=== PATIENT | female | born 1945 | race Caucasian/White ===

== ENCOUNTER → 2021-06-05 09:27 | Outpatient (CLI) | payer OTHER, SELFPAY ==
[2021-06-05 11:31] LABS: COVID19 -Nasal RAPID Negative (Negative)
== END ==
PROVIDERS: Visit Provider Physician Assistant
DX: Z01.812 Encounter for preprocedural laboratory examination (principal); Z20.822 Contact with and (suspected) exposure to COVID-19
CPT/HCPCS: 87635

== ENCOUNTER → 2021-06-07 07:25 | Outpatient (CLI) | payer OTHER, SELFPAY ==
--- NOTE | 2021-06-07 | DI.NM.S_ITS ---
PROCEDURE: NM VALENTIN PERF SPECT REST & STR Rest and exercise myocardial perfusion SPECT with gated imaging and ejection fraction RADIOPHARMACEUTICAL: 10.4 mCi Tc-99m sestamibi IV at rest and 26.9 mCi Tc-99m sestamibi IV at peak exercise. A one day-protocol was performed. INDICATIONS: Atherosclerotic heart disease TECHNIQUE: Radiopharmaceutical was injected at peak stress test, and also at rest. SPECT images were obtained. SPECT myocardial perfusion images were displayed in short axis, horizontal long axis, and vertical long axis views. Gated images were reviewed using [employer]previously [employer]QUANT software. COMPARISON: None. CARDIAC STRESS: A standard Diaz treadmill exercise tolerance test was performed by the patient under the supervision of an attending staff. The patient exercised for 6 minutes and 16 seconds; functional aerobic impairment (PIERCE) is -15%. Hemodynamic data: There is normal blood pressure and heart rate response to exercise stress. Patient achieved 104% of maximum predicted heart rate at peak exercise. Symptoms: Patient had moderate chest pain with exercise that resolved during recovery. EKG: Resting ECG shows minimal ST depressions in the anterolateral leads that worsen to mild with exercise. The mild inferior lead ST depressions at rest worsen slightly with exercise. Frequent PACs and very brief runs of atrial tachycardia present. FINDINGS: Raw data: There is good myocardial labeling by radiotracer. No significant motion artifacts. Bfnq-yo-gnjnp ratio is 0.26 (normal is less than 0.38 for sestamibi tracer, and less than 0.50 for thallium tracer). Left ventricle function: Gated images demonstrate normal left ventricle wall thickening. No segmental wall motion abnormality. No transient ischemic dilation; TID is 1.11 (normal less than 1.3). The left ventricle resting end-diastolic volume is 41 mL. Left ventricle stress ejection fraction is 81%; normal values are above 45%. Myocardial perfusion: There is a fixed distal anterior wall defect that resolves with prone imaging, suggesting breast attenuation artifact. No ischemia or infarction. IMPRESSION: Low risk, abnormal treadmill stress test. 1) There is a fixed distal anterior wall defect that resolves with prone imaging, suggesting breast attenuation artifact. No ischemia or infarction. 2) Normal left ventricular size, wall motion, and systolic function (EF post stress 81%). 3) Slight worsen of ST depressions in the anterolateral leads and inferior leads with exercise. 4) Frequent PACs and very brief runs of atrial tachycardia present with exerXinronge and during recovery. 5) Angina with exercise that resolved quickly in early recovery. 6) Good exercise tolerance (7.0 METs, Pierce -15%). Target heart rate achieved. Appropriate BP response to exercise. 7) No prior nuclear stress test available for comparison. Dictated by: Sebastien Man MD on 06/07/2021 at 16:48 Approved by: Sebastien Man MD on 06/07/2021 at 16:54
--- OUTSIDE RECORDS SUMMARY | 2021-06-12 08:54 | XMS_ITS | Referral Summary ---
:1945 Author Organization [facility] Address [address] [place] [address] Care Team Providers Name Role Phone MD Sana Primary Care Provider Reason for Referral Evaluate and Treat (Routine) Status Reason Specialty Diagnoses / Referred By Referred To Procedures Contact Contact Closed Specialty Cardiology Diagnoses History of heart artery stent [facility] Services Kamilah Virgen MD [address] [place] [address] [address] [id number] [place], [place] Phone: [phone] Electronically signed by Sebastien Man MD at Encounter Details Date Type Department Care Team Description 06/08/[address] [facility] Sebastien Man MD Cardiology [address] [place] [address], [address] [place] [address] [place] [address] Allergies Active Allergy Reactions Severity Noted Date Comments Atorvastatin Low 01/06/2020 Other reaction( s): Adverse Drug Reaction transaminitis documented as of this encounter (statuses as of 06/09/2021) Medications Medication Sig Dispensed Refills Start Date End Date Status levothyroxine Take 100 mcg by 0 Active (SYNTHROID) 100 mcg mouth daily tablet latanoprost (XALATAN) Administer 1 drop 0 Active 0.005 % ophthalmic into both eyes solution nightly aspirin 81 mg EC Take 1 tablet (81 30 tablet 11 04/29/202104/02 Active tablet mg total) by mouth daily nitroglycerin Place 1 tablet 90 tablet 0 04/29/2021 04/29/2022 Active (NITROSTAT) 0.4 mg SL (0.4 mg total) tablet under the tongue every 5 (five) minutes as needed for chest pain (If chest pain does not resolve after 3 pills call 911) amLODIPine (NORVASC) Take 1 tablet (5 90 tablet 3 05/09/2021 0 05/09/2022 Active 5 mg tablet mg total) by mouth daily isosorbide Take 1 tablet (60 90 tablet 3 05/09/2021 05/09/2022 Active mononitrate (IMDUR) mg total) by 60 mg 24 hr tablet mouth daily clopidogreL (PLAVIX) Take 1 tablet (75 90 tablet 3 05/09/2021 05/09/2022 Active 75 mg tablet mg total) by mouth daily rosuvastatin Take 1 tablet (20 90 tablet 0 05/09/2021 08/07/20 21 Active (CRESTOR) 20 mg mg total) by tablet mouth nightly documented as of this encounter (statuses as of 06/09/2021) Active Problems Problem Noted Date Non-ST elevation (NSTEMI) myocardial infarction 2020 Coronary artery disease involving white mountain coronary barbara ry 04/29/2021 Hypothyroidism 04/29/2021 History of breast cancer 04/29/2021 documented as of this encounter (statuses as of 06/09/2021) Social History Tobacco Use Types Packs/Day Years Used Date Former Smoker Cigarettes Quit: 04/27/19 78 Smokeless Tobacco: Never Used Alcohol Use Standard Drinks/Week Comments Never 0 (1 standard drink = 0.6 oz pure alcoho l) Alcohol Habits Answer Date Recorded How often do you have a drink containing alcohol? Never 04/27/2021 How many drinks containing alcohol do you have on a typical Not asked day when you are drinking? How often do you have six or more drinks on one occasion? No t asked Sex Assigned at Date Recorded Not on file Job Start Date Occupation Industry Not on file Not on file Not on file documented as of this encounter Miscellaneous Notes Telephone Encounter - Leah Ventura MA - 06/09/2021 5:04 PM PDT It doesn't look like they need anything else. Thanks! elephone Encounter - Ofelia Parada - 06/09/2021 3:23 PM PDT Auth recvd and faxed along w/order to Cardiac Rehab. D, can you sent whatever else they need? Thank you elephone Encounter - Sebastien Man MD - 06/08/2021 1:08 PM PDT Ofelia: please see my cardiac rehab referral for . FYI: I called the patient and spoke with her over the phone about her stress test results. While thenuclear perfusion images were normal, she did have chest discomfort with exertion and mild ST changes. She had held her imdur prior to the nuclear stress test (as asked by us). She states that she has lots on her plate right now, with giant cell arteritis diagnosis, BRBPR for which she is working with PCP, and ill sister. We agreed to continue with conservative approach for her CAD and have her take imdur daily and to call us if she has any exertional chest discomfort. I will refer her to cardiacrehab at . documented in this encounter Plan of Treatment Upcoming Encounters Date Type Specialty Care Team Description 08/10/2021 Telemedicine Cardiology Sebastien Man MD [address] [address] [place] [address] [phone] Scheduled Referrals Name Type Priority Associated Order Schedule Diagnoses XTRNL Referral to Outpatient Referral Routine History of heart Ordered: Cardiology artery stent 06/08/2021 documented as of this encounter Implants Implanted Type Area Safety Equipment Tester Device Identifier Shelf Exp iration Model / Date Serial / L ot Stent Resol Addy Rx 3.0*30mm - [id number] Medtronic [id number] / Implanted: Qty: 1 on 04/28/2021 at [facility] / documented as of this encounter Visit Diagnoses Diagnosis ASHD (arteriosclerotic heart disease) - Primary Coronary atherosclerosis of unspecified type of vessel, white [place] or graft History of heart artery stent documented in this encounter Insurance Payer Benefit Plan / Subscriber ID Effective Dates Phone Addre ss Type Group [facility] [id number] 2016-[facility] HEALTH PLAN OF [facility] documented as of this encounter Advance Directives Documents on File Type Date Recorded 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
== END ==
PROVIDERS: Referring Provider Internal Medicine Cardiovascular Disease; Visit Provider Internal Medicine Cardiovascular Disease
DX: I25.10 Atherosclerotic heart disease of native coronary artery without angina pectoris (principal)
CPT/HCPCS: 78452; 93017; A9502

== ENCOUNTER 2021-08-13 11:37 | Emergency (ER) | payer OTHER, SELFPAY ==
[2021-08-13] VITALS (10 sets, daily range): BP systolic 117–168; BP diastolic 62–83; PULSE 58–78; RESP 17–24; O2SAT 96–100
--- NOTE | 2021-08-13 11:48 | DI.RAD.S_ITS ---
PROCEDURE: XR CHEST 1V INDICATIONS: chest pain TECHNIQUE: One view of the chest was acquired. COMPARISON: None. FINDINGS: Surgical changes and devices: Right axillary clips. Right heart border coronary stent. Lungs and pleura: Lungs appear clear. Suspect emphysematous change. No pleural effusions or pneumothorax. Mediastinum: Mediastinal contours appear normal. Heart size is normal. Bones and chest wall: Chondroid matrix within the right proximal humerus. No cortical disruption seen. Overlying soft tissues appear unremarkable. IMPRESSION: No acute cardiopulmonary abnormality. Suspect benign enchondroma within the right proximal humerus. Dictated by: Julio Cesar De Leon M.D. on 08/13/2021 at 12:08 Approved by: Julio Cesar De Leon M.D. on 08/13/2021 at 12:10
[2021-08-13 12:03] LABS: Add Manual Diff / Slide Review NO; Basophils Absolute Auto 0 /uL (0-100); Basophils Percent Auto 0.6 % (0-2); Eosinophils Absolute Auto 100 /uL (0-450); Eosinophils Percent Auto 1.8 % (2-4); Hematocrit 37.6 % (36-46); Hemoglobin 12.4 g/dL (12.0-16.0); Lymphocytes Absolute Auto 1800 /uL (1100-4500); Mean Corpuscular Hemoglobin 30.3 PG (26-34); Mean Corpuscular Volume 91.8 fL (80-100); Monocytes Absolute Auto 500 /uL (0-900); Monocytes Percent Auto 6.8 % (3-14); Neutrophils Absolute Auto 4800 /uL (1500-7000); Neutrophils Percent Auto 65.8 % (50-75); Platelet Count 179 X10^3/uL (150-400); Red Cell Distribution Width 14.6 % (11.6-14.8); White Blood Cell Count 7.4 X10^3/uL (4.5-11.0)
[2021-08-13 12:12] LABS: Alanine Aminotransferase 15 IU/L (<35); Albumin 4.8 g/dL (3.5-5.0); Albumin Globulin Ratio 1.2 (1.0-2.8); Alkaline Phosphatase 91 U/L (38-126); Aspartate Aminotransferase 35 IU/L (14-36); BUN Creatinine Ratio 25.4 (6-22); Bilirubin Total 1.2 mg/dL (0.2-1.3); Blood Urea Nitrogen 17 mg/dL (7-17); Calcium 9.4 mg/dL (8.4-10.2); Carbon Dioxide 28 mmol/L (22-32); Chloride 105 mmol/L (98-107); Creatine Kinase 42 U/L (30-135); Estimated Glomerular Filt Rate > 60.0 mL/min (>60); Globulin 3.9 g/dL (1.7-4.1); Glucose 106 mg/dL (80-110); HEMOLYSIS < 15 (0-50); Lipase 105 U/L (23-300); Magnesium 1.9 mg/dL (1.6-2.3); Potassium 4.2 mmol/L (3.4-5.1); Sodium 141 mmol/L (137-145); Total Protein 8.7 g/dL (6.3-8.2)
[2021-08-13 12:24] LABS: NT-proBNP (BNP-Adult 18+) 945 pg/mL (<125); Troponin I < 0.012 ng/mL (0.01-0.034)
--- NOTE | 2021-08-13 12:39 | ED_ITS ---
HPI - Chest Pain General Chief Complaint: Chest Pain Stated Complaint: Chest pain-sent by Time Seen by Provider: 08/13/21 11:49 Source: patient Mode of arrival: Ambulatory Limitations: no limitations History of Present Illness HPI narrative: Patient is a 75-year-old female. Has a history of breast cancer. Also has a history of a heart attack earlier this year with stent placement. Here for evaluation of of an episode last evening when she had about 1 hour episode of palpitations, shortness of breath and some occasional sharp chest discomfort. She states that was a fairly sudden onset. Lasted approximately 1 hour and then resolved. She was able to sleep all evening without any further symptoms. This morning she had another episode of the sharp chest discomfort. She did not have the palpitations no other shortness of breath this morning. She is currently asymptomatic. Has never had anything like this in the past. A couple days ago she was started on metoprolol by her primary doctor. Related Data Allergies Allergy/AdvReac Type Severity Reaction Status Date / Time pravastatin Allergy Unknown Verified 08/13/21 11:47 Review of Systems Constitutional Constitutional: Reports system reviewed and no additional complaints, except as documented Cardiovascular Cardiovascular: Reports as per HPI and Reports system reviewed and no additional complaints, except as documented Respiratory Respiratory: Reports as per HPI and Reports system reviewed and no additional complaints, except as documented Gastrointestinal Gastrointestinal: Reports system reviewed and no additional complaints, except as documented Musculoskeletal Musculoskeletal: Reports system reviewed and no additional complaints, except as documented Integumentary/Breasts Skin/Breast: Reports system reviewed and no additional complaints, except as documented Neurologic Neurologic: Reports system reviewed and no additional complaints, except as documented Hematologic/Lymphatic On Anticoagulants: No Allergic/Immunologic Allergic/Immunologic: Reports system reviewed and no additional complaints, except as documented Patient History Medical History Breast cancer Coronary artery disease Hypothyroidism Social History Smoking Status: Former smoker Smoking Status: Former smoker alcohol intake frequency: 0-2 drinks per day Substance Use Type: does not use Exam Initial Vital Signs Initial Vital Signs: Vital Signs Pulse Rate 78 08/13/21 11:40 Respiratory Rate 17 08/13/21 11:40 Blood Pressure 120/62 08/13/21 11:40 Pulse Oximetry 99 08/13/21 11:40 HENMT Head: normal to inspection and normocephalic Eyes General: appearance normal, both eyes and all related structures Resp Effort & Inspection: normal respiratory effort Auscultation: clear to auscultation bilaterally Cardio Rate: regular rate Rhythm: regular rhythm GI Inspection: normal to inspection Skin General: no rashes or lesions noted Neuro General: patient alert, patient awake and moves all extremities Extrem General: normal to inspection and capillary refill normal Psych Appearance: grossly normal and well kempt Course Orders Ordered: ED Orders 08/13/21 11:45 Complete Blood Count AUTO DIFF Stat Comprehensive Metabolic Panel Stat Lipase Stat Magnesium Stat NT-proBNP (BNP-Adult 18+) Stat TSH w/ Reflex to FT4 Stat Troponin & CK Cardiac Panel Stat 08/13/21 11:48 XR chest 1V Stat EKG-12 Lead Stat 08/13/21 13:15 Troponin & CK Cardiac Panel Stat Vital Signs Vital signs: Vital Signs - 8 hr 08/13/21 11:40 08/13/21 11:44 08/13/21 11:45 Pulse Rate 78 74 Respiratory Rate 17 Blood Pressure 120/62 168/83 H Pulse Oximetry 99 96 08/13/21 12:00 08/13/21 12:30 08/13/21 13:00 Pulse Rate 62 66 58 L Respiratory Rate 21 20 17 Blood Pressure Pulse Oximetry 100 99 99 08/13/21 13:17 08/13/21 13:30 08/13/21 14:00 Pulse Rate 60 60 60 Respiratory Rate 24 24 20 Blood Pressure 117/66 122/68 127/66 Pulse Oximetry 100 100 100 08/13/21 14:19 Pulse Rate Respiratory Rate Blood Pressure 127/66 Pulse Oximetry MDM - Chest Pain Lab Data Attestation: I reviewed the patient's lab results. Result diagrams: 08/13/21 11:45 08/13/21 11:45 Labs: Lab Results 08/13/21 08/13/21 08/13/21 Range/Units 11:45 11:45 11:45 WBC 7.4 (4.5-11.0) X10^3/uL RBC 4.10 (4.0-5.2) X10^6/uL Hgb 12.4 (12.0-16.0) g/dL Hct 37.6 (36-46) % MCV 91.8 (80-100) fL MCH 30.3 (26-34) PG MCHC 33.0 (30-36) % RDW 14.6 (11.6-14.8) % Plt Count 179 (150-400) X10^3/uL Neut % (Auto) 65.8 (50-75) % Lymph % (Auto) 25.0 (25-40) % [place] % (Auto) 6.8 (3-14) % Eos % (Auto) 1.8 L (2-4) % Baso % (Auto) 0.6 (0-2) % Neut # (Auto) 4800 (0921-9314) /uL Lymph # (Auto) 1800 (1207-8065) /uL [place] # (Auto) 500 (0-900) /uL Eos # (Auto) 100 (0-450) /uL Baso # (Auto) 0 (0-100) /uL Sodium 141 (137-145) mmol/L Potassium 4.2 (3.4-5.1) mmol/L Chloride 105 (98-107) mmol/L Carbon Dioxide 28 (22-32) mmol/L BUN 17 (7-17) mg/dL Creatinine 0.67 (0.52-1.04) mg/dL Estimated GFR > 60.0 (>60) mL/min BUN/Creatinine Ratio 25.4 H (6-22) Glucose 106 (80-110) mg/dL Calcium 9.4 (8.4-10.2) mg/dL Magnesium 1.9 (1.6-2.3) mg/dL Total Bilirubin 1.2 (0.2-1.3) mg/dL AST 35 (14-36) IU/L ALT 15 (<35) IU/L Alkaline Phosphatase 91 (38-126) U/L Total Creatine Kinase 42 (30-135) U/L CK-MB (CK-2) TNP CK-MB (CK-2) Rel Index TNP Troponin I < 0.012 (0.01-0.034) ng/mL NT-Pro-B Natriuret Pep 945 H (<125) pg/mL Total Protein 8.7 H (6.3-8.2) g/dL Albumin 4.8 (3.5-5.0) g/dL Globulin 3.9 (1.7-4.1) g/dL Albumin/Globulin Ratio 1.2 (1.0-2.8) Lipase 105 (23-300) U/L TSH 1.66 (0.47-4.68) uIU/mL 08/13/21 Range/Units 13:15 WBC (4.5-11.0) X10^3/uL RBC (4.0-5.2) X10^6/uL Hgb (12.0-16.0) g/dL Hct (36-46) % MCV (80-100) fL MCH (26-34) PG MCHC (30-36) % RDW (11.6-14.8) % Plt Count (150-400) X10^3/uL Neut % (Auto) (50-75) % Lymph % (Auto) (25-40) % [place] % (Auto) (3-14) % Eos % (Auto) (2-4) % Baso % (Auto) (0-2) % Neut # (Auto) (4416-2676) /uL Lymph # (Auto) (0471-2369) /uL [place] # (Auto) (0-900) /uL Eos # (Auto) (0-450) /uL Baso # (Auto) (0-100) /uL Sodium (137-145) mmol/L Potassium (3.4-5.1) mmol/L Chloride (98-107) mmol/L Carbon Dioxide (22-32) mmol/L BUN (7-17) mg/dL Creatinine (0.52-1.04) mg/dL Estimated GFR (>60) mL/min BUN/Creatinine Ratio (6-22) Glucose (80-110) mg/dL Calcium (8.4-10.2) mg/dL Magnesium (1.6-2.3) mg/dL Total Bilirubin (0.2-1.3) mg/dL AST (14-36) IU/L ALT (<35) IU/L Alkaline Phosphatase (38-126) U/L Total Creatine Kinase 38 (30-135) U/L CK-MB (CK-2) TNP CK-MB (CK-2) Rel Index TNP Troponin I < 0.012 (0.01-0.034) ng/mL NT-Pro-B Natriuret Pep (<125) pg/mL Total Protein (6.3-8.2) g/dL Albumin (3.5-5.0) g/dL Globulin (1.7-4.1) g/dL Albumin/Globulin Ratio (1.0-2.8) Lipase (23-300) U/L TSH (0.47-4.68) uIU/mL Imaging Data Chest x-ray: Radiologist's Impression: [address] [address] XRay Report Signed Patient: Ramonita Caba MR#: [id number] : 1945 Acct:[id number] Age/Sex: 75 / F Date of Service: 08/13/21 Loc: ED Accession Number: [id number] ?? Procedure: XR chest 1V Ordering Provider: Miguel Avery D.O. PROCEDURE:? XR CHEST 1V ? INDICATIONS:? chest pain ? TECHNIQUE:? One view of the chest was acquired.? ? COMPARISON:? None. ? FINDINGS:? ? Surgical changes and devices:? Right axillary clips.? Right heart border coronary stent.? ? ? Lungs and pleura:? Lungs appear clear.? Suspect emphysematous change.? No pleural effusions or pneumothorax.? ? Mediastinum:? Mediastinal contours appear normal.? Heart size is normal.? ? Bones and chest wall:? Chondroid matrix within the right proximal humerus.? No cortical disruption seen.? Overlying soft tissues appear unremarkable.? ? IMPRESSION:? No acute cardiopulmonary abnormality. ? Suspect benign enchondroma within the right proximal humerus. ? ? ? Dictated by: Julio Cesar De Leon M.D. on 08/13/2021 at 12:08 ? ? Approved by: Julio Cesar De Leon M.D. on 08/13/2021 at 12:10?? ECG Data Attestation: I personally reviewed and interpreted this ECG as follows: Interpretation: Sinus rhythm Ventricular rate is 73 Normal axis Normal QRS Normal QTC No ST T wave changes MDM Narrative Medical decision making narrative: Patient had no ectopy here in the emergency department. Her exam is unremarkable. Vital signs unremarkable. Labs unremarkable. Troponins negative. Will discharge home with instructions to contact her primary doctor for follow-up. She expressed understanding and agreement. Discharge Plan Departure Patient Disposition: Home Clinical Impression: Palpitations Instructions: DI for Arrhythmias Activity Restrictions/Additional Instructions: Recommend that you continue to take all of your medications as directed. Contact your primary provider for a follow-up and return to the emergency department for any new or worsening symptoms Referrals: Neetu Hood [Primary Care Provider] -
[2021-08-13 13:14] LABS: TSH w/ Reflex to FT4 1.66 uIU/mL (0.47-4.68)
[2021-08-13 13:29] LABS: Creatine Kinase 38 U/L (30-135)
[2021-08-13 13:42] LABS: Troponin I < 0.012 ng/mL (0.01-0.034)
== END 2021-08-13 14:35 | disposition home or self-care (01) ==
PROVIDERS: Emergency Provider Emergency Medicine; PCP Student in an Organized Health Care Education/Training Program
DX: R00.2 Palpitations (principal); R06.02 Shortness of breath; R07.9 Chest pain, unspecified
CPT/HCPCS: 36415; 71045; 80053; 82550; 83690; 83735; 83880; 84443; 84484; 85025; 93005; 99283; 99284

== ENCOUNTER 2021-11-13 10:30 | Outpatient (RCR) | payer OTHER, SELFPAY | END 2021-11-13 12:32 | LOC: CAR 10:30 | PROVIDERS: Referring Provider Internal Medicine Cardiovascular Disease; Visit Provider Internal Medicine Cardiovascular Disease | DX: Z95.5 Presence of coronary angioplasty implant and graft (principal) | CPT/HCPCS: 93798 ==

== ENCOUNTER → 2025-01-13 13:32 | Outpatient (CLI) | payer OTHER, SELFPAY ==
[2025-01-13 13:52] LABS: Hematocrit 37.5 % (36-46); Hemoglobin 12.8 g/dL (12.0-16.0); Mean Corpuscular HGB Conc 34.1 % (30-36); Mean Corpuscular Hemoglobin 32.5 PG (26-34); Mean Corpuscular Volume 95.4 fL (80-100); Platelet Count 178 X10^3/uL (150-400); Red Blood Cell Count 3.94 X10^6/uL (4.0-5.2); Red Cell Distribution Width 13.5 % (11.6-14.8); White Blood Cell Count 6.7 X10^3/uL (4.5-11.0)
== END ==
PROVIDERS: PCP Student in an Organized Health Care Education/Training Program; Referring Provider Internal Medicine Cardiovascular Disease; Visit Provider Internal Medicine Cardiovascular Disease
DX: D69.1 Qualitative platelet defects (principal)
CPT/HCPCS: 36415; 85027